=== PATIENT | male | born 1950 | race Caucasian/White ===

== ENCOUNTER 2020-07-02 21:08 | Emergency (ER) | payer BC, OTHER ==
[~2020-07-02] VITALS: Ht 182.9 cm; Wt 68.0 kg
[2020-07-02 21:08] VITALS: BP 143/99
[~2020-07-02 21:08] MED LIST: ACET325T53 PO; ALBU18HF2 INH; ALLA266C2 TP; ASPI-1169 PO; CITA20TA19 PO; CLON1TAB PO; NICO1PAT28 TD; Pantoprazole Sodium PO
--- NOTE | 2020-07-02 21:23 | NUR ---
CALLED FOR TRIAGE NO ANSWER
[2020-07-02] MEDS ORDERED: TIOT18CA3 INH (22:11)
[2020-07-02] MEDS ORDERED: HYDR25TA4 PO (22:11)
== END 2020-07-02 22:34 | disposition home or self-care (01) ==
LOC: ER 21:11
DX: Z76.0 Encounter for issue of repeat prescription (principal); I10 Essential (primary) hypertension; J44.9 Chronic obstructive pulmonary disease, unspecified; Z79.899 Other long term (current) drug therapy

== ENCOUNTER 2022-05-04 06:50 | Emergency (ER) | payer BC, MEDICARE, OTHER ==
[~2022-05-04] VITALS: Ht 182.9 cm; Wt 72.6 kg
[~2022-05-04 06:50] MED LIST changes: +HYDR25TA4 PO; +TIOT18CA3 INH
[2022-05-04 07:03] VITALS: BP 157/91
[2022-05-04] MEDS ORDERED: LISI10TA29 PO (07:13)
[2022-05-04] MEDS ORDERED: FLUO20CA36 PO (07:13)
[2022-05-04] MEDS ORDERED: ALBU18HF2 INH (07:13)
[2022-05-04] MEDS ORDERED: BUSP15TA3 PO (07:13)
[2022-05-04] MEDS ORDERED: AMLO-212 PO (07:13)
== END 2022-05-04 09:57 | disposition home or self-care (01) ==
LOC: ER 06:52
DX: Z76.0 Encounter for issue of repeat prescription (principal); I10 Essential (primary) hypertension; J44.9 Chronic obstructive pulmonary disease, unspecified; F32.A Depression, unspecified; F17.200 Nicotine dependence, unspecified, uncomplicated; Z79.899 Other long term (current) drug therapy

== ENCOUNTER 2022-05-24 00:20 | Emergency (ER) | payer MEDICARE ==
[~2022-05-24] VITALS: Ht 185.4 cm; Wt 68.0 kg
[~2022-05-24 00:20] MED LIST changes: +AMLO-212 PO; +BUSP15TA3 PO; +FLUO20CA36 PO; +LISI10TA29 PO
--- NOTE | 2022-05-24 00:40 | NUR ---
BIBS. "TROUBLE BREATHING" AND RINGING IN THE EAR STARTING @2200. ALSO C/O ANXIETY, HEADACHE, NECK PAIN AND "WOULD LIKE TO SEE A DOCTOR". AXO3 ABLE TO MAKE NEEDS KNOWN. AMBULATORY
[2022-05-24] MEDS ORDERED: LORAZEPAM 1 MG TABLET PO ONE (01:00)
[2022-05-24] MEDS ORDERED: LORAZEPAM 1 MG TABLET ONE (01:02)
[2022-05-24 01:28] VITALS: BP 117/86
--- NOTE | 2022-05-24 01:29 | NUR ---
Patient discharged to home in stable condition. Written and verbal after care instructions given. Patient verbalizes understanding of instruction.
== END 2022-05-24 01:30 | disposition home or self-care (01) ==
LOC: ER 00:26
DX: F32.A Depression, unspecified (principal); I10 Essential (primary) hypertension; J44.9 Chronic obstructive pulmonary disease, unspecified; F17.200 Nicotine dependence, unspecified, uncomplicated; Z79.899 Other long term (current) drug therapy; Z79.82 Long term (current) use of aspirin